=== PATIENT | female | born 1945 | race African-American/Black ===

== ENCOUNTER → 2019-10-21 | Outpatient (CLI) | payer OTHER ==
[~2019-10-21] MED LIST: ACETAMINOPHEN325 M1 PO; AMARYL4 MG PO; COLACE 100 MG100 MG PO; GLUCOPHAGE1000 MG PO; HYDROCHLOROTHIA25 M2 PO; LEVOXYL112 MCG PO; LIPITOR 20 MG T20 M1 PO; METFORMIN HCL500 MG PO; MIRALAX17 GM PO; OXYCODONE HCL 55 MG PO; VENLAFAXINE H37.5 M1 PO
== END ==
LOC: LAB 11:29
PROVIDERS: ATTEND Student in an Organized Health Care Education/Training Program
DX: Z01.818 Encounter for other preprocedural examination (principal); Z11.59 Encounter for screening for other viral diseases

== ENCOUNTER 2019-10-23 07:33 | Day surgery (SDC) | payer OTHER ==
[~2019-10-23] VITALS: Ht 162.6 cm; Wt 81.6 kg
[~2019-10-23 07:33] MED LIST changes: -ACETAMINOPHEN325 M1 PO; -COLACE 100 MG100 MG PO; -MIRALAX17 GM PO; -OXYCODONE HCL 55 MG PO
[2019-10-23 08:26] VITALS: BP 117/60
[2019-10-23 08:57] LABS: CALCIUM 9.1 mg/dL (8.5-10.1); CREATININE 0.8 mg/dL (0.6-1.0); POTASSIUM 3.7 mmol/L (3.5-5.1)
[2019-10-23 09:06] LABS: HEMATOCRIT 41.1 % (37.0-47.0); HEMOGLOBIN 13.5 gm/dL (12.0-15.0); MCH 31.1 pg (26.0-34.0); MCV 94.2 fL (80.0-100.0); RBC 4.36 mil/uL (4.20-5.00); RDW 12.6 % (10.5-14.5); WBC 3.7 thou/uL (4.0-11.0)
[2019-10-23] MEDS ORDERED: ACETAMINOPHEN325 M1 PO (10:12)
[2019-10-23] MEDS ORDERED: COLACE 100 MG100 MG PO (10:12)
[2019-10-23] MEDS ORDERED: OXYCODONE HCL 55 MG PO (10:12)
[2019-10-23] MEDS ORDERED: MIRALAX17 GM PO (10:13)
[2019-10-23 10:33] VITALS: BP 117/60
--- NOTE | 2019-10-24 10:07 | EKG ---
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
--- NOTE | 2019-10-26 17:07 | PATH ---
[facility] [address] [place] [address] PATHOLOGY RPT PROCEDURE Name: CARRINGTON DE SANTIAGO Room #: [place] [facility] [place].R.#: [id number] Admission: 10/23/19 Date of : 49 Discharge: 10/23/19 Report #: [id number] Path Case #: [id number] [facility] Accession Number: [id number] . 01 Material submitted: . appendix - APPENDIX . 02 Diagnosis: Appendix, appendectomy: - Mild focal acute appendicitis. - Markedly dilated lumen. - Fibrous obliteration of the tip. (IUV/db; 10/26/2019) LBQ 10/26/2019 1534 Local . 02 Electronically signed: . Jerrica Trimble MD, Pathologist NPI- [id number] . 01 Gross description: . The specimen is received in formalin, labeled "Carrington De Santiago, appendix" and consists of an intact tristan appendix measuring 8.3 cm in length and up to 1.1 cm in diameter with attached mesoappendix measuring up to 3.2 cm in thickness. The proximal margin is inked. The lumen is dilated ranging up to 0.8 cm in diameter and contains hemorrhagic fecal material. No gross lesions are identified. Machine Finisher sections are submitted in A1-A2. (DAVID; 10/23/2019) JFQ/JFBerlin 10/23/2019 1716 Local . 02 Pathologist provided ICD-10: K35.80 . 02 CPT . 647606 Specimen Comment: A courtesy copy of this report has been sent to [phone] Specimen Comment: Report sent to Performed at: [address], [place] [id number] MD Larry Phillips MD Phone: [phone] Performed at: [address] [id number] MD Jerrica Trimble MD Phone: [phone]
== END 2019-10-23 12:15 | disposition home or self-care (01) ==
LOC: OR 07:33 → TBA 07:50 → OR 12:15
PROVIDERS: ATTEND Surgery
DX: K35.80 Unspecified acute appendicitis (principal); I10 Essential (primary) hypertension; E11.9 Type 2 diabetes mellitus without complications; E78.5 Hyperlipidemia, unspecified; F32.9 Major depressive disorder, single episode, unspecified; E05.00 Thyrotoxicosis with diffuse goiter without thyrotoxic crisis or storm; K21.9 Gastro-esophageal reflux disease without esophagitis; Z98.890 Other specified postprocedural states; Z79.899 Other long term (current) drug therapy; Z90.49 Acquired absence of other specified parts of digestive tract; Z90.710 Acquired absence of both cervix and uterus
CPT/HCPCS: 50010; 50101; 50249; 50411; 50455; 50555; 50558; 50739; 50740; 52265; 53307; 53310; 53312; 54022; 54118; 56525; 56526; 62110; 62900; 70005